=== PATIENT | female | born 1950 | race Caucasian/White ===

== ENCOUNTER 2017-10-20 09:21 | Inpatient (IN) | payer MEDICARE ==
[~2017-10-20] VITALS: Ht 157.5 cm; Wt 60.6 kg
[~2017-10-20 09:21] MED LIST: ACTEMRA IV; AMLO1TAB84 PO; ATOR20TA9 PO; FOLI-17 PO; METH2.5T PO; MULT-658 PO; OMEP40CA6 PO; POTA10TA6 PO; VENL37.58 PO
[2017-10-20] MEDS ORDERED: SODIUM CHLORIDE FLUSH 10ML SYR IVF ONE (10:00)
[2017-10-20] MEDS ORDERED: CLINDAMYCIN PMX 600MG/50ML 50 ML IVPB ONE (10:00)
[2017-10-20] MEDS ORDERED: CLINDAMYCIN PMX 600MG/50ML 50 ML ONE (10:11)
[2017-10-20 10:19] LABS: BASOPHILS # (AUTO) 0.03 x10^3/uL (0-0.1); BASOPHILS % (AUTO) 0 % (0-1); EOSINOPHILS # (AUTO) 0.16 x10^3/uL (0-0.4); EOSINOPHILS % (AUTO) 3 % (1-7); LYMPHOCYTES # (AUTO) 1.36 x10^3/uL (1-3.4); LYMPHOCYTES % (AUTO) 21 % (22-44); MD NO; MEAN CORPUSCULAR HEMOGLOBIN 31.5 pg (27.0-34.8); MEAN CORPUSCULAR HGB CONC 33.2 g/dL (32.4-35.8); MEAN CORPUSCULAR VOLUME 94.8 fL (80-100); MEAN PLATELET VOLUME 7.5 fL (7.4-10.4); MONOCYTES # (AUTO) 0.62 x10^3/uL (0.2-0.8); MONOCYTES % (AUTO) 9 % (2-9); NEUTROPHILS # (AUTO) 4.46 x10^3/uL (1.8-6.8); NEUTROPHILS % (AUTO) 67 % (42-75); PLATELET COUNT 266 x10^3/uL (130-400); RED BLOOD COUNT 4.55 x10^6/uL (3.82-5.3); RED CELL DISTRIBUTION WIDTH 13.6 % (9.6-15.2)
[2017-10-20 10:29] LABS: ALBUMIN 4.1 g/dL (3.4-5.0); ANION GAP 7 mmol/L (5-15); CALCIUM 8.7 mg/dL (8.5-10.1); CHLORIDE 114 mmol/L (98-107); CREATININE 0.95 mg/dL (0.55-1.02)
[2017-10-20] MEDS ORDERED: LOSA100T6 PO (10:34)
[2017-10-20] MEDS ORDERED: AMLO5TAB2 PO (10:35)
[2017-10-20] MEDS ORDERED: CALC500C PO (10:35)
[2017-10-20] MEDS ORDERED: FAMO40TA61 PO (10:36)
[2017-10-20] MEDS ORDERED: IPRA3AMP NAS (10:37)
[2017-10-20 11:53] LABS: HCT (SEDRATE) 43.1 % (34.6-47.8)
[2017-10-20 12:57] VITALS: BP 112/77
[2017-10-20 13:45] VITALS: BP 118/70
[2017-10-20] MEDS ORDERED: LABETALOL 5MG/ML, 20ML IVPush PRN (14:30)
[2017-10-20] MEDS ORDERED: POLYETHYLENE GLYCOL 17 GM PACKET PO PRN (14:30)
[2017-10-20] MEDS ORDERED: VANCOMYCIN PER PHARMACY MC PRN (14:30)
[2017-10-20] MEDS ORDERED: ONDANSETRON 2MG/ML, 2ML IVPush PRN (14:30)
[2017-10-20] MEDS ORDERED: ONDANSETRON ODT 4 MG PO PRN (14:30)
[2017-10-20 15:22] LABS: FREE T4 (FREE THYROXINE) 0.97 ng/dL (0.76-1.46)
[2017-10-20] MEDS ORDERED: VANCOMYCIN PMX 1GM/200ML 200 ML IV SCH (15:30)
[2017-10-20] MEDS ORDERED: PHARMACOKINETIC MONITORING MC PRN (15:30)
[2017-10-20] MEDS ORDERED: PHARMACOKINETIC CONSULTATION MC ONE (15:30)
[2017-10-20] MEDS: D5%-0.45% NACL 1,000 ML IV SCH (17:56)
[2017-10-20] MEDS: AMPICILLIN/SULBACTAM 3 GM in SODIUM CHLORIDE 0.9% 100 ML IV SCH ×2 (18:01→23:41)
[2017-10-20] MEDS: ENOXAPARIN 40 MG/0.4 ML SQ SCH (18:06)
[2017-10-20 20:45] VITALS: BP 121/64
[2017-10-20] MEDS ORDERED: ATORVASTATIN 20 MG TABLET PO SCH (21:00)
[2017-10-21 03:40] VITALS: BP 122/69
[2017-10-21 05:21] LABS: BASOPHILS # (AUTO) 0.03 x10^3/uL (0-0.1); BASOPHILS % (AUTO) 1 % (0-1); EOSINOPHILS # (AUTO) 0.28 x10^3/uL (0-0.4); EOSINOPHILS % (AUTO) 5 % (1-7); LYMPHOCYTES # (AUTO) 1.83 x10^3/uL (1-3.4); LYMPHOCYTES % (AUTO) 34 % (22-44); MD NO; MEAN CORPUSCULAR HEMOGLOBIN 31.8 pg (27.0-34.8); MEAN CORPUSCULAR HGB CONC 33.5 g/dL (32.4-35.8); MEAN CORPUSCULAR VOLUME 94.8 fL (80-100); MEAN PLATELET VOLUME 7.6 fL (7.4-10.4); MONOCYTES # (AUTO) 0.66 x10^3/uL (0.2-0.8); MONOCYTES % (AUTO) 12 % (2-9); NEUTROPHILS # (AUTO) 2.65 x10^3/uL (1.8-6.8); NEUTROPHILS % (AUTO) 49 % (42-75); PLATELET COUNT 217 x10^3/uL (130-400); RED BLOOD COUNT 3.97 x10^6/uL (3.82-5.3); RED CELL DISTRIBUTION WIDTH 13.5 % (9.6-15.2)
[2017-10-21 05:32] LABS: CHLORIDE 112 mmol/L (98-107)
[2017-10-21] MEDS: AMPICILLIN/SULBACTAM 3 GM in SODIUM CHLORIDE 0.9% 100 ML IV SCH ×3 (05:45→18:19)
[2017-10-21 05:47] LABS: ALBUMIN 3.5 g/dL (3.4-5.0); ANION GAP 8 mmol/L (5-15); CALCIUM 8.5 mg/dL (8.5-10.1); CREATININE 0.87 mg/dL (0.55-1.02)
[2017-10-21 07:05] VITALS: BP 116/70
[2017-10-21] MEDS: MULTIVITAMIN 1 TABLET PO SCH (09:00)
[2017-10-21] MEDS: SENNA/DOCUSATE TABLET PO SCH (09:00)
[2017-10-21] MEDS: CALCIUM CARBONATE 500 MG TAB.CHEW PO SCH (09:00)
[2017-10-21] MEDS: ALBUTEROL/IPRATROPIUM 2.5MG/0.5MG, 3 ML NEB SCH (09:05)
[2017-10-21] MEDS: LOSARTAN 50MG TABLET PO SCH (09:49)
[2017-10-21] MEDS: ATORVASTATIN 20 MG TABLET PO SCH (09:50)
[2017-10-21] MEDS: AMLODIPINE 5 MG TABLET PO SCH (09:50)
[2017-10-21 13:13] VITALS: BP 116/66
[2017-10-21] MEDS ORDERED: VANCOMYCIN 1,200 MG in SODIUM CHLORIDE 0.9% 250 ML IV SCH ×2 (14:00→15:41)
[2017-10-21] MEDS: D5%-0.45% NACL 1,000 ML IV SCH (18:19)
[2017-10-21] MEDS: ENOXAPARIN 40 MG/0.4 ML SQ SCH (18:20)
[2017-10-21 19:08] VITALS: BP 136/76
[2017-10-22 01:13] VITALS: BP 118/65
[2017-10-22] MEDS: AMPICILLIN/SULBACTAM 3 GM in SODIUM CHLORIDE 0.9% 100 ML IV SCH ×3 (05:25→13:37)
[2017-10-22 07:50] VITALS: BP 113/71
[2017-10-22] MEDS: ALBUTEROL/IPRATROPIUM 2.5MG/0.5MG, 3 ML NEB SCH (09:00)
[2017-10-22] MEDS: CALCIUM CARBONATE 500 MG TAB.CHEW PO SCH (09:00)
[2017-10-22] MEDS ORDERED: ALBUTEROL/IPRATROPIUM 2.5MG/0.5MG, 3 ML NEB PRN (11:00)
[2017-10-22 13:18] VITALS: BP 131/74
[2017-10-22] MEDS: AMLODIPINE 5 MG TABLET PO SCH (13:35)
[2017-10-22] MEDS: LOSARTAN 50MG TABLET PO SCH (13:36)
[2017-10-22] MEDS: ATORVASTATIN 20 MG TABLET PO SCH (13:36)
[2017-10-22] MEDS: SENNA/DOCUSATE TABLET PO SCH (13:36)
[2017-10-22] MEDS: MULTIVITAMIN 1 TABLET PO SCH (13:42)
[2017-10-22] MEDS ORDERED: DOXY100T PO (14:21)
[2017-10-22] MEDS ORDERED: AMOX1TAB64 PO (14:21)
[2017-10-22 15:37] VITALS: BP 132/78
[2017-10-22] MEDS ORDERED: VANCOMYCIN 1,200 MG in SODIUM CHLORIDE 0.9% 250 ML IV SCH (16:00)
== END 2017-10-22 16:07 | disposition home or self-care (01) | DRG 540 ==
LOC: ED 09:45 → EDIP 11:04 → 4NOR 11:45 → DCLOUNGE 10-22 15:55
PROVIDERS: ADMIT Internal Medicine; ATTEND Internal Medicine
DX: M86.172 Other acute osteomyelitis, left ankle and foot (principal); L03.116 Cellulitis of left lower limb; E78.5 Hyperlipidemia, unspecified; I10 Essential (primary) hypertension; K21.9 Gastro-esophageal reflux disease without esophagitis; M06.9 Rheumatoid arthritis, unspecified; Z82.61 Family history of arthritis; Z87.891 Personal history of nicotine dependence; Z88.5 Allergy status to narcotic agent
CPT/HCPCS: 36415; 80048; 82040; 83605; 83735; 84100; 84439; 84443; 85025; 85651; 86140; 86141; 87040; 94640; 96365; J0295; J1650; J3370; J7620; J7050

== ENCOUNTER 2019-01-25 17:09 | Emergency (ER) | payer MEDICARE ==
[~2019-01-25] VITALS: Ht 157.5 cm; Wt 61.0 kg
[~2019-01-25 17:09] MED LIST changes: +AMLO-150 PO; +AMOX1TAB64 PO; +ATOR20TA37 PO; -ATOR20TA9 PO; +CALC500C PO; +DOXY100T PO; +FAMO40TA61 PO; +IPRA3AMP30 NAS; +LOSA100T14 PO
[2019-01-25] MEDS ORDERED: SODIUM CHLORIDE FLUSH 10ML SYR IVF ONE (17:30)
[2019-01-25 18:15] LABS: BASOPHILS # (AUTO) 0.03 x10^3/uL (0-0.1); BASOPHILS % (AUTO) 1 % (0-1); EOSINOPHILS # (AUTO) 0.32 x10^3/uL (0-0.4); EOSINOPHILS % (AUTO) 6 % (1-7); LYMPHOCYTES # (AUTO) 2.24 x10^3/uL (1-3.4); LYMPHOCYTES % (AUTO) 43 % (22-44); MD NO; MEAN CORPUSCULAR HEMOGLOBIN 31.1 pg (27.0-34.8); MEAN CORPUSCULAR VOLUME 94.2 fL (80-100); MEAN PLATELET VOLUME 7.8 fL (7.4-10.4); MONOCYTES # (AUTO) 0.63 x10^3/uL (0.2-0.8); MONOCYTES % (AUTO) 12 % (2-9); NEUTROPHILS # (AUTO) 2.01 x10^3/uL (1.8-6.8); NEUTROPHILS % (AUTO) 39 % (42-75); PLATELET COUNT 203 x10^3/uL (130-400); RED BLOOD COUNT 4.21 x10^6/uL (3.82-5.3); RED CELL DISTRIBUTION WIDTH 14.5 % (9.6-15.2)
[2019-01-25 18:25] LABS: ALBUMIN 3.8 g/dL (3.4-5.0); ANION GAP 7 mmol/L (5-15); CALCIUM 8.7 mg/dL (8.5-10.1); CHLORIDE 113 mmol/L (98-107)
[2019-01-25 18:28] LABS: ALANINE AMINOTRANSFERASE 36 U/L (12-78); ALKALINE PHOSPHATASE 82 U/L (45-117); BILIRUBIN,TOTAL 0.8 mg/dL (0.2-1.0); CREATININE 0.99 mg/dL (0.55-1.02); TOTAL PROTEIN 6.5 g/dL (6.4-8.2)
--- NOTE | 2019-01-25 18:40 | NUR ---
THIS IS A 69 YO FEMALE WHO PRESENTS TO THE ER C/O RIGHT HIP - FRONT AND BACK RADITAING INTO BUTTOCK PAIN X 1 WEEK. WORSE WHEN LAYING AND GOING FROM SITTING TO STANDING. PT ALSO C/O INTERMITTENT PAIN WITH URINATION. PT STEADY UPON AMBULATION TO RESTROOM. URINE SAMPLE OBTAINED AND SENT TO LAB. PT AO X 4. SKIN PWD. RESP EVEN AND UNLABORED. PT AWARE WE ARE WAITING FOR LAB RESULTS. CALL LIGHT WITHIN REACH. WILL CONT TO MONITOR PT.
[2019-01-25 19:22] LABS: MICROSCOPIC AUTO
[2019-01-25 19:28] LABS: CULTURE INDICATED? YES
--- NOTE | 2019-01-25 19:50 | NUR ---
TYRELL REMY WAS AT BEDSIDE FOR RECHECK/EXPLANATION OF RESULTS. PT VERBALIZES UNDERSTANDING. PT UP TO RESTROOM, STEADY UPON AMBULATION TO RESTROOM AND BACK TO [facility]. PT AO X 4. SKIN PWD. REPS EVEN AND UNLABORED. PT ON CONT BP AND O2 MONITORS. CALL LIGHT WITHIN REACH. WILL CONT TO MONITOR PT.
--- NOTE | 2019-01-25 20:30 | NUR ---
PT CURRENTLY RESTING ON [employer]. NAD NOTED. SKIN PWD. RESP EVEN AND UNALABORED. PT AWARE WE ARE WAITING FOR IMAGING RESULTS. PT DENIES PAIN/NEEDS AT THIS TIME. CALL LIGHT WITHIN REACH. WILL CONT TO MONITOR PT.
[2019-01-25] MEDS ORDERED: OMNIPAQUE 350 MG/ML, 100ML BOTTLE ONE (20:37)
[2019-01-25 21:09] VITALS: BP 158/98
== END 2019-01-25 21:11 | disposition home or self-care (01) ==
LOC: ED 21:00
DX: R10.31 Right lower quadrant pain (principal); M54.5 Low back pain; R30.0 Dysuria; I10 Essential (primary) hypertension; Z87.891 Personal history of nicotine dependence
CPT/HCPCS: 36415; 74177; 80053; 81001; 83690; 85025; 87086; 99284; Q9967

== ENCOUNTER 2019-05-12 15:31 | Emergency (ER) | payer MEDICARE ==
[~2019-05-12] VITALS: Ht 157.5 cm; Wt 60.0 kg
[2019-05-12 15:33] VITALS: BP 148/68
--- NOTE | 2019-05-12 15:51 | NUR ---
PT STATES SHE IS HAVING RLQ PAIN, SHE IS CONCERNED THAT IT IS HER APPENDIX. PT MOE N/V/D. PT DENIES CP, SOB, TRAUMA
[2019-05-12] MEDS ORDERED: SODIUM CHLORIDE FLUSH 10ML SYR IVF ONE (16:00)
[2019-05-12 16:25] LABS: BASOPHILS # (AUTO) 0.02 x10^3/uL (0-0.1); BASOPHILS % (AUTO) 1 % (0-1); EOSINOPHILS # (AUTO) 0.15 x10^3/uL (0-0.4); EOSINOPHILS % (AUTO) 4 % (1-7); LYMPHOCYTES # (AUTO) 1.61 x10^3/uL (1-3.4); LYMPHOCYTES % (AUTO) 37 % (22-44); MD NO; MEAN CORPUSCULAR HEMOGLOBIN 29.6 pg (27.0-34.8); MEAN CORPUSCULAR HGB CONC 33.1 g/dL (32.4-35.8); MEAN CORPUSCULAR VOLUME 89.5 fL (80-100); MEAN PLATELET VOLUME 7.4 fL (7.4-10.4); MONOCYTES # (AUTO) 0.55 x10^3/uL (0.2-0.8); MONOCYTES % (AUTO) 13 % (2-9); NEUTROPHILS # (AUTO) 2.02 x10^3/uL (1.8-6.8); NEUTROPHILS % (AUTO) 47 % (42-75); PLATELET COUNT 227 x10^3/uL (130-400)
[2019-05-12 16:31] LABS: ALANINE AMINOTRANSFERASE 39 U/L (12-78); ALBUMIN 3.6 g/dL (3.4-5.0); ANION GAP 6 mmol/L (5-15); CALCIUM 8.7 mg/dL (8.5-10.1); CHLORIDE 114 mmol/L (98-107); CREATININE 0.86 mg/dL (0.55-1.02)
[2019-05-12 16:35] LABS: ALKALINE PHOSPHATASE 84 U/L (45-117); BILIRUBIN,TOTAL 0.6 mg/dL (0.2-1.0); TOTAL PROTEIN 6.1 g/dL (6.4-8.2); TROPONIN I < 0.015 ng/mL (0.000-0.045)
--- NOTE | 2019-05-12 16:37 | NUR ---
TASK RN: FIRST CONTACT WITH PT. PIV placed for pt. Pt ambulated to restroom with UA cup provided. Pt ambulates with steady gait and balance. NADN. No needs expressed.
[2019-05-12] MEDS ORDERED: OMNIPAQUE 350 MG/ML, 100ML BOTTLE ONE (16:53)
--- NOTE | 2019-05-12 16:55 | NUR ---
PT AMBULATED TO BR WITH STEADY GAIT, UA COLLECTED AND SENT TO LAB
[2019-05-12 17:35] LABS: MICROSCOPIC INDICATED
--- NOTE | 2019-05-12 17:38 | NUR ---
Patient/Caregiver given discharge instructions and they have confirmed that they understand the instructions. Patient ambulatory with steady gait.
[2019-05-12 17:59] LABS: CULTURE INDICATED? NO
== END 2019-05-12 17:39 | disposition home or self-care (01) ==
LOC: ED 17:05
DX: R10.12 Left upper quadrant pain (principal); R10.11 Right upper quadrant pain; I10 Essential (primary) hypertension; Z87.891 Personal history of nicotine dependence
CPT/HCPCS: 36415; 71045; 74177; 80053; 81001; 83690; 84484; 85025; 93005; 99284; Q9967

== ENCOUNTER 2019-10-26 12:58 | Emergency (ER) | payer MEDICARE ==
[~2019-10-26] VITALS: Ht 157.5 cm; Wt 60.6 kg
[~2019-10-26 12:58] MED LIST changes: +OMEP40CA42 PO; -OMEP40CA6 PO
--- NOTE | 2019-10-26 13:55 | NUR ---
PIV ESTABLISHED. LABS DRAWN. AWIATING CT. VSS. NO NEEDS EXPRESSED.
--- NOTE | 2019-10-26 14:12 | NUR ---
break RN note: pt back from CT. pt a&o, resps even and unlabored. pt instructed to provide clean catch ua. pt up to bathroom with steady gait.
[2019-10-26 14:13] LABS: BASOPHILS # (AUTO) 0.02 x10^3/uL (0-0.1); BASOPHILS % (AUTO) 0 % (0-1); EOSINOPHILS # (AUTO) 0.26 x10^3/uL (0-0.4); EOSINOPHILS % (AUTO) 4 % (1-7); LYMPHOCYTES # (AUTO) 2.39 x10^3/uL (1-3.4); LYMPHOCYTES % (AUTO) 32 % (22-44); MD NO; MEAN CORPUSCULAR HEMOGLOBIN 27.2 pg (27.0-34.8); MEAN CORPUSCULAR HGB CONC 31.9 g/dL (32.4-35.8); MEAN CORPUSCULAR VOLUME 85.1 fL (80-100); MEAN PLATELET VOLUME 7.7 fL (7.4-10.4); MONOCYTES # (AUTO) 0.68 x10^3/uL (0.2-0.8); MONOCYTES % (AUTO) 9 % (2-9); NEUTROPHILS # (AUTO) 4.08 x10^3/uL (1.8-6.8); NEUTROPHILS % (AUTO) 55 % (42-75); PLATELET COUNT 255 x10^3/uL (130-400); RED BLOOD COUNT 4.86 x10^6/uL (3.82-5.3); RED CELL DISTRIBUTION WIDTH 16.5 % (9.6-15.2)
[2019-10-26 14:23] LABS: ALANINE AMINOTRANSFERASE 46 U/L (12-78); ALBUMIN 4.3 g/dL (3.4-5.0); ANION GAP 7 mmol/L (5-15); CALCIUM 9.1 mg/dL (8.5-10.1); CHLORIDE 113 mmol/L (98-107)
[2019-10-26 14:25] LABS: ALKALINE PHOSPHATASE 115 U/L (45-117); BILIRUBIN,TOTAL 0.9 mg/dL (0.2-1.0); TOTAL PROTEIN 7.1 g/dL (6.4-8.2)
--- NOTE | 2019-10-26 14:29 | NUR ---
pt back from bathroom, urine collected and walked to lab. pt reattached to bp and spo2 monitors. call light in reach. pt reports 4/10 left lower quad pain, denies any needs at this time. awaiting ct/lab/ua results and dispo at this time .
[2019-10-26 14:47] LABS: CULTURE INDICATED? YES; MICROSCOPIC INDICATED
[2019-10-26] MEDS ORDERED: OMNIPAQUE 350 MG/ML, 100ML BOTTLE ONE (15:10)
[2019-10-26 15:15] VITALS: BP 136/88
--- NOTE | 2019-10-26 15:15 | NUR ---
PT RESTING IN ROOM. VSS. PT STATES PAIN IS WORSE WHEN LYING DOWN, SO SHE IS SITTING UP. PT DECLINES PAIN MEDICATION AT THIS TIME. NO NEEDS EXPRESSED. CALL LIGHT WITHIN REACH. AWAITING CT RESULTS.
== END 2019-10-26 16:00 | disposition home or self-care (01) ==
LOC: ED 13:37
DX: A09 Infectious gastroenteritis and colitis, unspecified (principal); R93.5 Abnormal findings on diagnostic imaging of other abdominal regions, including retroperitoneum; N28.89 Other specified disorders of kidney and ureter; I10 Essential (primary) hypertension; M19.90 Unspecified osteoarthritis, unspecified site; Z90.710 Acquired absence of both cervix and uterus
CPT/HCPCS: 36415; 74177; 80053; 81001; 83690; 85025; 87086; 99285; Q9967

== ENCOUNTER 2019-12-31 15:47 | Emergency (ER) | payer MEDICARE ==
[~2019-12-31] VITALS: Ht 160 cm; Wt 60.4 kg
[2019-12-31 15:54] VITALS: BP 122/75
== END 2019-12-31 17:20 | disposition home or self-care (01) ==
LOC: ED 17:10
DX: S02.2XXA Fracture of nasal bones, initial encounter for closed fracture (principal); I10 Essential (primary) hypertension; M19.90 Unspecified osteoarthritis, unspecified site; Z87.891 Personal history of nicotine dependence; W18.30XA Fall on same level, unspecified, initial encounter; Y93.89 Activity, other specified; Y92.009 Unspecified place in unspecified non-institutional (private) residence as the place of occurrence of the external cause; Y99.8 Other external cause status
CPT/HCPCS: 70160; 99283

== ENCOUNTER 2020-06-13 16:35 | Emergency (ER) | payer MEDICARE ==
[~2020-06-13] VITALS: Ht 157.5 cm; Wt 60.6 kg
[2020-06-13] MEDS ORDERED: SODIUM CHLORIDE FLUSH 10ML SYR IVF ONE (17:00)
--- NOTE | 2020-06-13 17:04 | NUR ---
INCOME TAX ADVISOR: PT TO ROOM FROM LOBBY
[2020-06-13 17:11] LABS: BASOPHILS % (AUTO) 1 % (0-1); EOSINOPHILS % (AUTO) 6 % (1-7); LYMPHOCYTES % (AUTO) 36 % (22-44); MEAN CORPUSCULAR HGB CONC 31.9 g/dL (32.4-35.8); MEAN PLATELET VOLUME 7.6 fL (7.4-10.4); MONOCYTES % (AUTO) 12 % (2-9); NEUTROPHILS % (AUTO) 46 % (42-75); PLATELET COUNT 241 x10^3/uL (130-400); RED BLOOD COUNT 4.43 x10^6/uL (3.82-5.3); RED CELL DISTRIBUTION WIDTH 21.1 % (9.6-15.2)
[2020-06-13 17:14] LABS: MD MORPH REVIEW ONLY
[2020-06-13 17:16] LABS: ALBUMIN 3.9 g/dL (3.4-5.0); ANION GAP 4 mmol/L (5-15); CALCIUM 8.6 mg/dL (8.5-10.1); CHLORIDE 112 mmol/L (98-107)
[2020-06-13 17:21] LABS: ALANINE AMINOTRANSFERASE 50 U/L (12-78); ALKALINE PHOSPHATASE 86 U/L (45-117); BILIRUBIN,TOTAL 0.5 mg/dL (0.2-1.0); TOTAL PROTEIN 6.6 g/dL (6.4-8.2); TROPONIN I < 0.015 ng/mL (0.000-0.045)
--- NOTE | 2020-06-13 17:28 | NUR ---
PT C/O PAIN IN PAIN LOWER RIGHT ABD AND RIGHT HIP. PT DESCRIBES IT OCCASIONAL SHARP PAIN. PT ALSO HAS AN ISSUE WITH INSOMNIA. PAIN HAS BEEN ONGOING FOR "QUITE A WHILE".
[2020-06-13 17:30] VITALS: BP 127/73
--- NOTE | 2020-06-13 17:33 | NUR ---
MD SWANSON BEDSIDE
[2020-06-13 18:08] LABS: ANISOCYTOSIS 1+; OVALOCYTES 1+
[2020-06-13 18:09] LABS: TEAR DROPS 1+
[2020-06-13 18:11] LABS: <PLATELET ESTIMATE> ADEQUATE; <PLT MORPHOLOGY> NORMAL PLT MORPH
--- NOTE | 2020-06-13 18:12 | NUR ---
PT SITTING ON BED. IN NO APPARENT DISTRESS. AWATING FURTHER ORDERS.
== END 2020-06-13 19:04 | disposition home or self-care (01) ==
LOC: ED 18:24
DX: G89.29 Other chronic pain (principal); R10.9 Unspecified abdominal pain; I10 Essential (primary) hypertension; F17.200 Nicotine dependence, unspecified, uncomplicated; Z90.710 Acquired absence of both cervix and uterus
CPT/HCPCS: 36415; 80053; 83690; 84484; 85025; 93005; 99284